=== PATIENT | female | born 1975 | race Caucasian/White ===

== ENCOUNTER 2022-12-18 18:10 | Emergency (ER) | payer MEDICAID ==
[~2022-12-18] VITALS: Ht 167.6 cm; Wt 87.1 kg
== END 2022-12-18 19:58 | disposition home or self-care (01) ==
LOC: ED 18:10
DX: S90.112A Contusion of left great toe without damage to nail, initial encounter (principal); M54.6 Pain in thoracic spine; Z88.8 Allergy status to other drugs, medicaments and biological substances; W10.9XXA Fall (on) (from) unspecified stairs and steps, initial encounter; Y93.89 Activity, other specified; Y92.89 Other specified places as the place of occurrence of the external cause; Y99.8 Other external cause status

== ENCOUNTER 2023-03-31 11:17 | Emergency (ER) | payer MEDICAID ==
[~2023-03-31] VITALS: Ht 167.6 cm; Wt 86.2 kg
[2023-03-31 11:59] LABS: BILIRUBIN Negative (Negative); BLOOD Negative (Negative); CLARITY Turbid (Clear); COLOR Yellow (Yellow); GLUCOSE Negative (Negative); KETONE Negative (Negative); LEUKO ESTERASE Trace (Negative); NITRITE Negative (Negative); PH 5.5 (4.5-8.0); SPECIFIC GRAVITY 1.015 (1.001-1.030); UROBILINOGEN 0.2 E.U./dl (0.0-1.0)
[2023-03-31 12:05] LABS: BASO # 0.1 10*3/uL (0.0-0.1); BASO % 0.6 % (0.0-1.0); EOS # 0.2 10*3/uL (0.0-0.4); EOS % 2.3 % (1.0-4.0); HEMATOCRIT 45.7 % (37.0-47.0); LYMPH # 2.1 10*3/uL (1.3-4.4); LYMPH % 27.6 % (27.0-41.0); MEAN CELL VOLUME 97.2 fl (81.0-99.0); MEAN CORPUSCULAR HGB 33.8 pg (27.0-31.0); MEAN CORPUSCULAR HGB CONC 34.8 g/dl (33.0-37.0); MEAN PLATELET VOLUME 9.5 fl (9.6-12.3); MONO # 0.5 10*3/uL (0.1-1.0); MONO % 6.3 % (3.0-9.0); NEUT # 4.9 10*3/uL (2.3-7.9); NEUT % 62.8 % (47.0-73.0); PLATELET COUNT AUTOMATED 233 10*3/uL (130-400); RED CELL DISTRI WIDTH 13.1 % (0-14.5); WHITE BLOOD COUNT 7.8 10*3/uL (4.8-10.8)
[2023-03-31 12:10] LABS: BACTERIA 1+; EPITHELIAL CELLS TNTC; RBC 0-2 rbc/hpf (0-2)
[2023-03-31 12:17] LABS: ACT PARTIAL THROMBO TIME 28.1 SECONDS (20.0-32.1)
[2023-03-31 12:28] LABS: ALKALINE PHOSPHATASE 135 U/L (46-116); BUN 15 mg/dl (9-23); CHLORIDE 107 mmol/L (98-107); LIPASE 40 U/L (12-53); POTASSIUM 3.5 mmol/L (3.4-5.1); SGPT/ALT 14 U/L (10-49); TOTAL PROTEIN 7.5 gm/dL (6.0-8.0)
[2023-03-31] MEDS ORDERED: PHENERGAN25 M3 PO (14:24)
[2023-04-01] MEDS ORDERED: METOPROLOL SUCC50 M1 PO (21:59)
[2023-04-01] MEDS ORDERED: PRAZOSIN HYDROCH1 MG PO (21:59)
[2023-04-01] MEDS ORDERED: BUSPAR15 MG PO (21:59)
[2023-04-01] MEDS ORDERED: NEURONTIN300 MG PO (22:00)
[2023-04-01] MEDS ORDERED: ATORVASTATIN CA40 M1 PO (22:00)
[2023-04-01] MEDS ORDERED: MELOXICAM15 MG PO (22:01)
[2023-04-01] MEDS ORDERED: DULOXETINE HCL60 MG PO (22:01)
[2023-04-01] MEDS ORDERED: OMEPRAZOLE40 MG PO (22:01)
== END 2023-03-31 14:40 | disposition home or self-care (01) ==
LOC: ED 11:17
PROVIDERS: Internal Medicine
DX: R10.84 Generalized abdominal pain (principal); R11.0 Nausea; R19.7 Diarrhea, unspecified; Z88.5 Allergy status to narcotic agent; Z88.8 Allergy status to other drugs, medicaments and biological substances

== ENCOUNTER 2023-04-01 20:25 | Emergency (ER) | payer MEDICAID ==
[~2023-04-01] VITALS: Ht 167.6 cm; Wt 86.2 kg
[~2023-04-01 20:25] MED LIST: PHENERGAN25 M3 PO
[2023-04-01] MEDS ORDERED: PRAZOSIN HYDROCH1 MG PO (21:59)
[2023-04-01] MEDS ORDERED: METOPROLOL SUCC50 M1 PO (21:59)
[2023-04-01] MEDS ORDERED: BUSPAR15 MG PO (21:59)
[2023-04-01] MEDS ORDERED: ATORVASTATIN CA40 M1 PO (22:00)
[2023-04-01] MEDS ORDERED: NEURONTIN300 MG PO (22:00)
[2023-04-01] MEDS ORDERED: OMEPRAZOLE40 MG PO (22:01)
[2023-04-01] MEDS ORDERED: MELOXICAM15 MG PO (22:01)
[2023-04-01] MEDS ORDERED: DULOXETINE HCL60 MG PO (22:01)
[2023-04-01 22:43] LABS: BASO % 0.6 % (0.0-1.0); EOS # 0.1 10*3/uL (0.0-0.4); EOS % 2.2 % (1.0-4.0); HEMATOCRIT 42.7 % (37.0-47.0); LYMPH # 2.4 10*3/uL (1.3-4.4); LYMPH % 37.4 % (27.0-41.0); MEAN CELL VOLUME 96.8 fl (81.0-99.0); MEAN CORPUSCULAR HGB 33.3 pg (27.0-31.0); MEAN CORPUSCULAR HGB CONC 34.4 g/dl (33.0-37.0); MEAN PLATELET VOLUME 9.4 fl (9.6-12.3); MONO # 0.4 10*3/uL (0.1-1.0); MONO % 6.1 % (3.0-9.0); NEUT # 3.4 10*3/uL (2.3-7.9); NEUT % 53.5 % (47.0-73.0); PLATELET COUNT AUTOMATED 213 10*3/uL (130-400); RED BLOOD COUNT 4.41 10*6/uL (4.10-5.10); RED CELL DISTRI WIDTH 13.2 % (0-14.5); WHITE BLOOD COUNT 6.4 10*3/uL (4.8-10.8)
[2023-04-01 22:54] LABS: BILIRUBIN Negative (Negative); BLOOD Negative (Negative); CLARITY Turbid (Clear); COLOR Yellow (Yellow); GLUCOSE Negative (Negative); KETONE Trace (Negative); LEUKO ESTERASE Trace (Negative); NITRITE Negative (Negative); PH 5.5 (4.5-8.0); SPECIFIC GRAVITY >= 1.030 (1.001-1.030)
[2023-04-01 23:03] LABS: ALKALINE PHOSPHATASE 118 U/L (46-116); BUN 14 mg/dl (9-23); CHLORIDE 108 mmol/L (98-107); LIPASE 37 U/L (12-53); POTASSIUM 3.9 mmol/L (3.4-5.1); SGPT/ALT 11 U/L (10-49); TOTAL PROTEIN 6.9 gm/dL (6.0-8.0)
[2023-04-01 23:47] LABS: BACTERIA 2+
== END 2023-04-02 01:30 | disposition home or self-care (01) ==
LOC: ED 20:25
PROVIDERS: Emergency Medicine
DX: G43.909 Migraine, unspecified, not intractable, without status migrainosus (principal); R10.9 Unspecified abdominal pain; Z88.5 Allergy status to narcotic agent; Z88.8 Allergy status to other drugs, medicaments and biological substances

== ENCOUNTER 2023-05-13 20:37 | Emergency (ER) | payer OTHER, MEDICAID ==
[~2023-05-13] VITALS: Ht 167.6 cm; Wt 81.6 kg
[~2023-05-13 20:37] MED LIST changes: +ATORVASTATIN CA40 M1 PO; +BUSPAR15 MG PO; +DULOXETINE HCL60 MG PO; +MELOXICAM15 MG PO; +METOPROLOL SUCC50 M1 PO; +NEURONTIN300 MG PO; +OMEPRAZOLE40 MG PO; +PRAZOSIN HYDROCH1 MG PO
[2023-05-13] MEDS ORDERED: METHOCARBAMOL750 M1 PO (21:24)
[2023-05-13] MEDS ORDERED: NAPROXEN250 MG PO (21:24)
== END 2023-05-13 21:48 | disposition home or self-care (01) ==
LOC: ED 20:37
DX: S39.012A Strain of muscle, fascia and tendon of lower back, initial encounter (principal); S16.1XXA Strain of muscle, fascia and tendon at neck level, initial encounter; Z88.6 Allergy status to analgesic agent; Z79.899 Other long term (current) drug therapy; V43.52XA Car driver injured in collision with other type car in traffic accident, initial encounter; Y93.I9 Activity, other involving external motion; Y92.488 Other paved roadways as the place of occurrence of the external cause; Y99.8 Other external cause status

== ENCOUNTER 2023-05-20 20:59 | Emergency (ER) | payer MEDICAID ==
[~2023-05-20] VITALS: Ht 167.6 cm; Wt 81.6 kg
[~2023-05-20 20:59] MED LIST changes: +METHOCARBAMOL750 M1 PO; +NAPROXEN250 MG PO
[2023-05-20 22:26] LABS: BILIRUBIN Negative (Negative); BLOOD 2+ (Negative); CLARITY Cloudy (Clear); COLOR Yellow (Yellow); GLUCOSE Negative (Negative); KETONE Negative (Negative); LEUKO ESTERASE 3+ (Negative); NITRITE Negative (Negative); PH 5.5 (4.5-8.0); SPECIFIC GRAVITY 1.025 (1.001-1.030)
[2023-05-20 22:53] LABS: EPITHELIAL CELLS 41-50
[2023-05-20 22:54] LABS: BACTERIA 2+; RBC 31-40 rbc/hpf (0-2); WBC 41-50 wbc/hpf (0-5)
[2023-05-21] MEDS ORDERED: CEPHALEXIN500 M1 PO (00:41)
== END 2023-05-21 01:00 | disposition home or self-care (01) ==
LOC: ED 20:59
PROVIDERS: Emergency Medicine
DX: S46.911A Strain of unspecified muscle, fascia and tendon at shoulder and upper arm level, right arm, initial encounter (principal); N39.0 Urinary tract infection, site not specified; I10 Essential (primary) hypertension; E78.00 Pure hypercholesterolemia, unspecified; M79.7 Fibromyalgia; G43.909 Migraine, unspecified, not intractable, without status migrainosus; Z90.711 Acquired absence of uterus with remaining cervical stump; Z88.6 Allergy status to analgesic agent; Z88.8 Allergy status to other drugs, medicaments and biological substances; Z79.899 Other long term (current) drug therapy; W10.8XXA Fall (on) (from) other stairs and steps, initial encounter; Y93.89 Activity, other specified; Y92.89 Other specified places as the place of occurrence of the external cause; Y99.8 Other external cause status

== ENCOUNTER 2023-05-31 22:59 | Emergency (ER) | payer MEDICAID ==
[~2023-05-31] VITALS: Ht 167.6 cm; Wt 77.1 kg
[~2023-05-31 22:59] MED LIST changes: +CEPHALEXIN500 M1 PO
[2023-05-31] MEDS ORDERED: SEPTDS PO (23:13)
[2023-05-31] MEDS ORDERED: PREDNISONE50 MG PO (23:13)
== END 2023-05-31 23:43 | disposition home or self-care (01) ==
LOC: ED 22:59
DX: L23.7 Allergic contact dermatitis due to plants, except food (principal); Z88.6 Allergy status to analgesic agent; Z88.8 Allergy status to other drugs, medicaments and biological substances; Z79.52 Long term (current) use of systemic steroids; Z79.2 Long term (current) use of antibiotics; Z79.899 Other long term (current) drug therapy

== ENCOUNTER 2024-03-26 01:55 | Emergency (ER) | payer MEDICAID ==
[~2024-03-26] VITALS: Ht 167.6 cm; Wt 73.9 kg
[~2024-03-26 01:55] MED LIST changes: +PREDNISONE50 MG PO; +SEPTDS PO
== END 2024-03-26 02:37 | disposition home or self-care (01) ==
LOC: ED 01:55
DX: J18.9 Pneumonia, unspecified organism (principal); Z00.00 Encounter for general adult medical examination without abnormal findings; G43.909 Migraine, unspecified, not intractable, without status migrainosus; Z88.8 Allergy status to other drugs, medicaments and biological substances; Z90.710 Acquired absence of both cervix and uterus; Z90.49 Acquired absence of other specified parts of digestive tract; Z98.890 Other specified postprocedural states; Z98.51 Tubal ligation status

== ENCOUNTER 2024-07-23 05:51 | Emergency (ER) | payer MEDICAID ==
[~2024-07-23] VITALS: Ht 167.6 cm; Wt 79.8 kg
[2024-07-23] MEDS ORDERED: diphenhydrAMINE hydrochloride 50 MG/ML VIAL IV ONE (06:20)
[2024-07-23] MEDS ORDERED: SODIUM CHLORIDE 0.9% 1,000 ML IV ONE (06:20)
[2024-07-23] MEDS ORDERED: MORPHINE Sulfate 2 MG/ML SYR IV ONE (06:20)
[2024-07-23] MEDS ORDERED: ACETAMINOPHEN 325 MG TAB PO ONE (06:20)
[2024-07-23] MEDS ORDERED: Metoclopramide Hydrochloride 10 MG/2 ML AMP IV ONE (06:20)
[2024-07-23 06:34] LABS: BASO # 0.1 10*3/uL (0.0-0.1); BASO % 0.7 % (0.0-1.0); EOS # 0.3 10*3/uL (0.0-0.4); EOS % 3.8 % (1.0-4.0); HEMATOCRIT 40.8 % (37.0-47.0); LYMPH # 2.3 10*3/uL (1.3-4.4); LYMPH % 33.3 % (27.0-41.0); MEAN CELL VOLUME 100.2 fl (81.0-99.0); MEAN CORPUSCULAR HGB 32.7 pg (27.0-31.0); MEAN CORPUSCULAR HGB CONC 32.6 g/dl (33.0-37.0); MEAN PLATELET VOLUME 9.1 fl (9.6-12.3); MONO # 0.6 10*3/uL (0.1-1.0); NEUT # 3.7 10*3/uL (2.3-7.9); NEUT % 53.9 % (47.0-73.0); PLATELET COUNT AUTOMATED 221 10*3/uL (130-400); RED BLOOD COUNT 4.07 10*6/uL (4.10-5.10); RED CELL DISTRI WIDTH 12.3 % (0-14.5); WHITE BLOOD COUNT 6.9 10*3/uL (4.8-10.8)
[2024-07-23 06:55] LABS: BUN 11 mg/dl (9-23); CHLORIDE 107 mmol/L (98-107); LIPASE 41 U/L (12-53); POTASSIUM 3.9 mmol/L (3.4-5.1)
[2024-07-23 07:16] LABS: BILIRUBIN Negative (Negative); BLOOD Negative (Negative); CLARITY Clear (Clear); COLOR Yellow (Yellow); GLUCOSE Negative (Negative); KETONE Negative (Negative); LEUKO ESTERASE 1+ (Negative); NITRITE Negative (Negative); PH 5.5 (4.5-8.0); UROBILINOGEN 0.2 E.U./dl (0.0-1.0)
[2024-07-23] MEDS ORDERED: MELOXICAM15 MG PO (07:19)
[2024-07-23] MEDS ORDERED: CYCLOBENZAPRINE10 MG PO (07:19)
[2024-07-23 07:29] LABS: BACTERIA 1+
== END 2024-07-23 07:32 | disposition home or self-care (01) ==
LOC: ED 05:51
PROVIDERS: Internal Medicine
DX: R10.9 Unspecified abdominal pain (principal); R11.2 Nausea with vomiting, unspecified; G43.909 Migraine, unspecified, not intractable, without status migrainosus; Z88.8 Allergy status to other drugs, medicaments and biological substances; Z88.5 Allergy status to narcotic agent; Z87.891 Personal history of nicotine dependence; Z90.49 Acquired absence of other specified parts of digestive tract; Z90.710 Acquired absence of both cervix and uterus; Z98.51 Tubal ligation status

== ENCOUNTER 2024-08-01 00:53 | Emergency (ER) | payer MEDICAID ==
[~2024-08-01] VITALS: Ht 167.6 cm; Wt 84.1 kg
[~2024-08-01 00:53] MED LIST changes: +CYCLOBENZAPRINE10 MG PO
[2024-08-01] MEDS ORDERED: Promethazine Hydrochloride 25 MG/ML VIAL IM ONE (01:10)
[2024-08-01] MEDS ORDERED: diphenhydrAMINE hydrochloride 50 MG/ML VIAL IV ONE (01:10)
[2024-08-01] MEDS ORDERED: methylPREDNISolone sod succ 125 MG VIAL IV ONE (01:10)
[2024-08-01] MEDS ORDERED: SODIUM CHLORIDE 0.9% 1,000 ML IV ONE (01:10)
[2024-08-01] MEDS ORDERED: PREDNISONE20 M1 PO (03:06)
== END 2024-08-01 03:19 | disposition home or self-care (01) ==
LOC: ED 00:53
DX: G43.909 Migraine, unspecified, not intractable, without status migrainosus (principal); M54.42 Lumbago with sciatica, left side; R11.0 Nausea; M79.605 Pain in left leg; Z88.8 Allergy status to other drugs, medicaments and biological substances; Z88.5 Allergy status to narcotic agent; Z98.51 Tubal ligation status; Z90.710 Acquired absence of both cervix and uterus; Z90.49 Acquired absence of other specified parts of digestive tract; Z98.890 Other specified postprocedural states